=== PATIENT | female | born 1955 | race Caucasian/White ===

== ENCOUNTER 2017-06-03 14:26 | Emergency (ER) | payer OTHER ==
[~2017-06-03 14:26] MED LIST: PROPOFOL 200 MG/20 ML VIAL IV ONE
[2017-06-03] MEDS ORDERED: MORPHINE SULFATE INJ 10 MG/ML VIAL IM ONE (14:40)
[2017-06-03] MEDS ORDERED: KETOROLAC TROMETHAMINE INJ 60 MG/2 ML VIAL IM ONE (14:40)
--- NOTE | 2017-06-03 14:43 | ED.PDOC ---
History of Present Illness - General Chief Complaint: Upper Extremity Injury Stated Complaint: RIGHT ELBOW PAIN Time Seen by Provider: 06/03/17 14:39 Source: patient Exam Limitations: no limitations - History of Present Illness Initial Comments: PT REPORTS FALLING ON AN OUTSTRETCHED LIMB JUST PRIOR TO ARRIVAL AND NOW REPORTS SEVERE PAIN TO HER RIGHT ELBOW. Occurred: just prior to arrival Pain - Upper Extremity: severe: Elbow, right Method of Injury: fell Improving Factors: cold therapy, immobilization Worsening Factors: movement Allergies/Adverse Reactions: Allergies NO KNOWN ALLERGY Allergy (Verified 06/03/17 14:40) Home Medications: Ambulatory Orders Multiple Vitamin [Multi Vitamin] 1 tab PO DAILY 06/03/17 Review of Systems - Review of Systems Constitutional: Denies: chills, fever EENTM: Denies: blurred vision, nose congestion Respiratory: Denies: cough, short of breath Cardiology: Denies: chest pain, palpitations Musculoskeletal: States: see HPI, joint pain. Denies: muscle pain Family Medical History - Family History Grandparents Family History: Unknown Progress - Progress Progress: 06/03/17 15:[address] PRIETO(ORTHOPEDIST) WHO ADVISED REDUCTION OF RADIUS AND ULNA AND FOLLOW UP WITH ORTHOPEDIST WHO MANAGES RADIAL NECK FRACTURES. 06/03/17 15:21 PT IS RESTING COMFORTABLY AND REPORTS SIGNIFICANT IMPROVEMENT IN PAIN AFTER IM TORADOL AND MORPHINE. XRAY FINDINGS DISCUSSED. WILL CALL ULTRASOUND COORDINATOR AND ARRANGE FOR CONSCIOUS SEDATION WITH DISLOCATION REDUCTION. 06/03/17 16:31 PT SUCCESSFULLY REDUCED UNDER CONSCIOUS SEDATION. JOINT WAS EXTREMELY UNSTABLE DURING REDUCTION. CASE DISCUSSED WITH DR. CHO(ORTHOPEDIST) AND DR. Kortney BRUNSON AT [facility] WHO AGREED TO ACCEPT PT IN TRANSFER. - EKG/XRAY/CT XRAY: elbow - POSTERIOR RADIUS/ULNAR DISLOCATION WITH DISPLACED RADIAL NECK FX. Procedures - Joint Reduction right elbow Conscious Sedation: Yes - 100MG IV PROPOFOL WAS ADMINISTERED BY SEBASTIAN VALDES CRNA Reduction Attempts: 3 - JOINT WAS EXTREMELY UNSTBLE DURING THE REDUCTION Pre-Procedure NV Exam: Yes Post Joint Reduction Film: DISPLACED RADIAL HEAD FX ALSO NOTED. Progress: SEBASTIAN VALDES CRNA ASSISTED WITH THE PROCEDURE. PT WAS SEDATED WITH IV PROPOFOL AND JOINT WAS REDUCED BY ME. PT TOLERATED PROCEDURE WELL. Departure - Departure Clinical Impression: Elbow dislocation, Radial neck fracture Time of Disposition: 16:37 Disposition: Transfer to Hospital Condition: Good Departure Forms: ED Discharge - Pt. Copy, Patient Portal Self Enrollment Instructions: DI for Arm Pain Home Medications: Ambulatory Orders Multiple Vitamin [Multi Vitamin] 1 tab PO DAILY 06/03/17 Transfer to Outside Facility - Transfer Information Accepting Provider:: DR. Kylee BRUNSON, DR. CHO Accepting Facility: [facility] Reason for Transfer: required specialist not available - ORTHOPEDIC SURGERY
[2017-06-03 15:02] VITALS: TEMP 97.4
--- NOTE | 2017-06-03 15:19 | RAD ---
EXAM DESCRIPTION: Elbow,Right 3 Views CLINICAL HISTORY: TRAUMA, DEFORMITY TO RIGHT ELBOW COMPARISON: None. TECHNIQUE: 3 views right FINDINGS: The exam demonstrates posterior dislocation of the radius and ulna. There is fracturing of the radial neck. There may also be some fracturing of the articular surface the radial head. A small bone fragment is observed posterior to the humerus. IMPRESSION: 1. Posterior dislocation of the radius and ulna are observed in relation to the distal humerus. 2. Fracturing of the right radial neck is observed. Electronically signed by: Jose Mccloud MD 06/03/2017 3:18 PM CDT
[2017-06-03] MEDS ORDERED: SODIUM CHLORIDE 0.9% 500ML 500 ML ONE (16:05)
--- NOTE | 2017-06-03 16:33 | RAD ---
EXAM DESCRIPTION: Elbow,Right 2 Views CLINICAL HISTORY: 62 years ,Female post reduction COMPARISON: 06/03/2017. TECHNIQUE: RIGHT elbow, Three view FINDINGS: There has been interval reduction of the fracture dislocation at the elbow. There is a fracture of the radial head with the radial head fracture fragment still located posterior to the distal humerus. There are small fracture fragments along the anterior aspect of the distal humerus and the posterior aspect of the distal humerus. Suspect fracture of the coronoid process. Joint effusion. IMPRESSION: There has been interval reduction of the dislocation at the right elbow. However the large radial head fracture fragment is still posteriorly dislocated, behind the distal aspect of the humerus Smaller fracture fragments are located dorsal to and volar to the distal humerus Coronoid process fracture Electronically signed by: Emily Mayen 06/03/2017 4:31 PM CDT
[2017-06-03 18:19] VITALS: BP 181/103; O2SAT 94
== END 2017-06-03 18:00 | disposition short-term general hospital (02) ==
LOC: ER 14:26
DX: S53.104A Unspecified dislocation of right ulnohumeral joint, initial encounter (principal); S52.131A Displaced fracture of neck of right radius, initial encounter for closed fracture; W19.XXXA Unspecified fall, initial encounter; Y92.9 Unspecified place or not applicable
CPT/HCPCS: 25605; 73070; 73080; 96372; 99156; 99285; J1885; J2270; J3490; J7040